=== PATIENT | female | born 1975 | race Caucasian/White ===

== ENCOUNTER 2017-03-18 09:09 | Emergency (ER) | payer OTHER ==
[~2017-03-18] VITALS: Ht 160 cm; Wt 90.0 kg
[~2017-03-18 09:09] MED LIST: MYLAN
[2017-03-18] MEDS ORDERED: SODIUM CHLORIDE 0.9% 1,000 ML IV ONE (10:21)
[2017-03-18] MEDS ORDERED: ONDANSETRON HCL 4MG/2ML VIAL IV ONE (10:30)
[2017-03-18] MEDS ORDERED: FAMOTIDINE 20MG/2ML VIAL IV ONE (10:45)
[2017-03-18] MEDS ORDERED: KETOROLAC 30MG/ML VIAL IV ONE (10:45)
[2017-03-18] MEDS ORDERED: EPINEPHRINE 1:1000 1 MG/ML AMP IM ONE (10:45)
[2017-03-18] MEDS ORDERED: PIPERACILLIN/TAZ 3.375G PREMIX 50 ML IV ONE (10:45)
[2017-03-18] MEDS ORDERED: LORAZEPAM 2MG/ML CPJ IV ONE (10:45)
[2017-03-18] MEDS ORDERED: DEXAMETHASONE 10MG/ML 1ML VIAL IV ONE (10:45)
[2017-03-18] MEDS ORDERED: DIPHENHYDRAMINE 50MG/ML VIAL IV ONE (10:45)
[2017-03-18] MEDS: SODIUM CHLORIDE 0.9% 1,000 ML IV SCH ×2 (10:53→11:02)
[2017-03-18] MEDS: ALBUTEROL (0.083%) 2.5MG/3ML NEB HHN SCH ×3 (10:55→12:02)
[2017-03-18 11:35] LABS: BASOPHILS % 0.6 % (0.0-2.0); HEMATOCRIT. 41.5 % (36.0-48.0); HEMOGLOBIN. 13.6 g/dL (12.0-16.0); LYMPHOCYTES % 37.9 % (20.0-50.0); MEAN CORPUSCULAR HEMOGLOBIN 28.7 pg (28.0-32.0); MEAN CORPUSCULAR HGB CONC 32.9 g/dL (31.0-37.0); MEAN CORPUSCULAR VOLUME 87.2 fL (81.0-99.0); MEAN PLATELET VOLUME 8.4 fl (7.4-10.4); MONOCYTES % 8.8 % (2.0-8.0); NEUTROPHILS % 50.7 % (40.0-76.0); PLATELET 364 x1000/uL (130-400); RED BLOOD CELL COUNT 4.76 mill/uL (4.2-5.4); RED CELL DISTRIBUTION WIDTH 13.7 % (11.6-14.6)
[2017-03-18 11:45] LABS: CHLORIDE 105 mEq/L (98-107); INDEX HEMOLYSI 1 (1-3); INDEX ICTERIC 1 (1-4); INDEX LIPEMIC 1 (1-3)
[2017-03-18 11:51] LABS: ANION GAP 14; CALCIUM 8.8 mg/dL (8.5-10.1); CARBON DIOXIDE 24 mEq/L (21-32); UREA NITROGEN BLOOD 12 mg/dL (7-21); eGFR > 60 mL/min (>60)
[2017-03-18 12:06] LABS: HCG SCREEN NEGATIVE
[2017-03-18 12:07] LABS: LACTIC ACID 3.9 mmol/L (0.4-2.0)
[2017-03-18] MEDS ORDERED: KCL 20MEQ/100ML PREMIX 100 ML IV ONE (12:15)
[2017-03-18] MEDS ORDERED: ACETAMINOPHEN 325MG TABLET PO ONE (13:45)
[2017-03-18] MEDS ORDERED: ALBUTEROL (0.083%) 2.5MG/3ML NEB HHN ONE (14:45)
[2017-03-18 16:54] VITALS: BP 124/66
== END 2017-03-18 16:56 | disposition home or self-care (01) ==
LOC: ER 10:18
DX: J03.90 Acute tonsillitis, unspecified (principal); J02.9 Acute pharyngitis, unspecified
CPT/HCPCS: 36415; 70450; 70490; 71010; 80048; 83605; 84703; 85025; 87040; 87086; 94640; 96361; 96365; 96366; 96372; 96375; 99285; J0171; J1100; J1200; J1885; J2405; J2543; J3480; J3490; J7030; J7040; J7611

== ENCOUNTER 2018-03-12 08:35 | Emergency (ER) | payer OTHER ==
[~2018-03-12] VITALS: Ht 144.8 cm; Wt 105.0 kg
[2018-03-12] MEDS ORDERED: HYDROCODONE/ACETAMINOPHEN 5/325MG TABLET PO ONE (10:30)
[2018-03-12] MEDS ORDERED: ONDANSETRON 4MG ODT PO ONE (10:30)
[2018-03-12 10:50] VITALS: BP 126/50
== END 2018-03-12 12:11 | disposition home or self-care (01) ==
LOC: ER 10:14
DX: L02.212 Cutaneous abscess of back [any part, except buttock and flank] (principal); Z98.890 Other specified postprocedural states
CPT/HCPCS: 72100; 81025; 99284; Q0162

== ENCOUNTER 2019-07-13 16:56 | Emergency (ER) | payer OTHER ==
[~2019-07-13] VITALS: Ht 160 cm; Wt 115.0 kg
[2019-07-14 00:16] LABS: BASOPHILS % 0.8 % (0.0-2.0); EOSINOPHILS % 1.6 % (0.0-5.0); HEMATOCRIT. 40.3 % (36.0-48.0); HEMOGLOBIN. 13.7 g/dL (12.0-16.0); LYMPHOCYTES % 33.9 % (20.0-50.0); MEAN CORPUSCULAR HEMOGLOBIN 30.2 pg (28.0-32.0); MEAN CORPUSCULAR VOLUME 89.1 fL (81.0-99.0); MEAN PLATELET VOLUME 7.7 fl (7.4-10.4); MONOCYTES % 9.1 % (2.0-8.0); NEUTROPHILS % 54.6 % (40.0-76.0); PLATELET 257 x1000/uL (130-400); RED BLOOD CELL COUNT 4.52 mill/uL (4.2-5.4); RED CELL DISTRIBUTION WIDTH 14.4 % (11.6-14.6)
[2019-07-14 00:21] LABS: CHLORIDE 105 mEq/L (98-107)
[2019-07-14 00:44] LABS: HCG SCREEN NEGATIVE
[2019-07-14] MEDS ORDERED: ACETAMINOPHEN 325MG TABLET PO ONE (02:15)
[2019-07-14 03:11] VITALS: BP 121/69
== END 2019-07-14 03:12 | disposition home or self-care (01) ==
LOC: ER 16:56
DX: R07.89 Other chest pain (principal); R06.02 Shortness of breath; F32.9 Major depressive disorder, single episode, unspecified; I10 Essential (primary) hypertension
CPT/HCPCS: 36415; 71045; 81025; 83880; 84484; 84703; 85379; 93005; 99283; 99284

== ENCOUNTER 2020-10-13 12:01 | Emergency (ER) | payer OTHER ==
[~2020-10-13] VITALS: Ht 144.8 cm; Wt 113.0 kg
[2020-10-13] MEDS ORDERED: METF500T PO (12:10)
[2020-10-13] MEDS ORDERED: HYDR12.54 PO (12:10)
[2020-10-13] MEDS ORDERED: ATOR10TA69 PO (12:10)
[2020-10-13] MEDS ORDERED: DIPH25CA83 PO (12:10)
[2020-10-13] MEDS ORDERED: [UNRECOGNIZED DRUG - OTHER] (12:10)
[2020-10-13] MEDS ORDERED: METF-815 PO (12:10)
[2020-10-13] MEDS ORDERED: DIPHENHYDRAMINE 25MG CAPSULE PO ONE (13:00)
[2020-10-13] MEDS ORDERED: FAMOTIDINE 20MG TABLET PO ONE (13:00)
[2020-10-13] MEDS ORDERED: PREDNISONE 20MG TABLET PO ONE (13:00)
[2020-10-13 13:47] VITALS: BP 140/80
== END 2020-10-13 13:47 | disposition home or self-care (01) ==
LOC: ER 12:01
DX: T78.2XXA Anaphylactic shock, unspecified, initial encounter (principal); I10 Essential (primary) hypertension; E11.9 Type 2 diabetes mellitus without complications; Z98.890 Other specified postprocedural states
CPT/HCPCS: 99284; J7512; Q0163

== ENCOUNTER 2020-10-23 23:23 | Emergency (ER) | payer OTHER ==
[~2020-10-23] VITALS: Ht 144.8 cm; Wt 116.0 kg
[~2020-10-23 23:23] MED LIST changes: +ATOR10TA69 PO; +DIPH25CA83 PO; +HYDR12.54 PO; +METF-815 PO; +METF500T PO; +[UNRECOGNIZED DRUG - OTHER]
[2020-10-24] MEDS ORDERED: METHYLPREDNISOLONE SOD SUCC 125 MG/2 ML VIAL IM STA (00:19)
[2020-10-24 01:33] LABS: BASOPHILS % 0.6 % (0.0-2.0); EOSINOPHILS % 1.1 % (0.0-5.0); HEMATOCRIT. 40.1 % (36.0-48.0); HEMOGLOBIN. 13.7 g/dL (12.0-16.0); MEAN CORPUSCULAR HEMOGLOBIN 29.3 pg (28.0-32.0); MEAN CORPUSCULAR VOLUME 86.1 fL (81.0-99.0); MEAN PLATELET VOLUME 8.2 fl (7.4-10.4); MONOCYTES % 5.1 % (2.0-8.0); NEUTROPHILS % 79.2 % (40.0-76.0); PLATELET 219 x1000/uL (130-400); RED BLOOD CELL COUNT 4.66 mill/uL (4.2-5.4); RED CELL DISTRIBUTION WIDTH 14.3 % (11.6-14.6)
[2020-10-24 01:35] LABS: CHLORIDE 100 mEq/L (98-107)
[2020-10-24 03:30] VITALS: BP 115/66
== END 2020-10-24 04:15 | disposition home or self-care (01) ==
LOC: ER 23:23
DX: T78.40XA Allergy, unspecified, initial encounter (principal); J45.909 Unspecified asthma, uncomplicated; E11.9 Type 2 diabetes mellitus without complications; E78.00 Pure hypercholesterolemia, unspecified; Z79.899 Other long term (current) drug therapy; Z98.890 Other specified postprocedural states; X58.XXXA Exposure to other specified factors, initial encounter
CPT/HCPCS: 36415; 71045; 80053; 85025; 93005; 96372; 99285; J2930

== ENCOUNTER 2021-01-30 06:28 | Emergency (ER) | payer OTHER ==
[~2021-01-30] VITALS: Ht 160 cm; Wt 100.0 kg
[~2021-01-30 06:28] MED LIST changes: -METF-815 PO; +METF-873 PO
[2021-01-30] MEDS ORDERED: SODIUM CHLORIDE 0.9% 1,000 ML IV ONE (06:45)
[2021-01-30] MEDS ORDERED: LORAZEPAM 2MG/ML CPJ IV ONE (07:15)
[2021-01-30 07:51] LABS: BASOPHILS % 0.4 % (0.0-2.0); EOSINOPHILS % 1.1 % (0.0-5.0); HEMATOCRIT. 40.9 % (36.0-48.0); HEMOGLOBIN. 13.6 g/dL (12.0-16.0); LYMPHOCYTES % 11.3 % (20.0-50.0); MEAN CORPUSCULAR HEMOGLOBIN 29.3 pg (28.0-32.0); MEAN PLATELET VOLUME 8.3 fl (7.4-10.4); MONOCYTES % 7.6 % (2.0-8.0); NEUTROPHILS % 79.6 % (40.0-76.0); PLATELET 328 x1000/uL (130-400); RED BLOOD CELL COUNT 4.65 mill/uL (4.2-5.4); RED CELL DISTRIBUTION WIDTH 14.4 % (11.6-14.6)
[2021-01-30 07:59] LABS: CHLORIDE 100 mEq/L (98-107)
[2021-01-30 08:14] LABS: PROTHROMBIN TIME 10.6 sec (9.6-11.0)
[2021-01-30 08:18] LABS: HCG SCREEN NEGATIVE
[2021-01-30] MEDS ORDERED: KETOROLAC 30MG/ML VIAL IV ONE (09:15)
[2021-01-30] MEDS ORDERED: LEVOFLOXACIN 500MG PREMIX 100 ML IV ONE (10:15)
[2021-01-30] MEDS ORDERED: MORPHINE SULFATE 4 MG/ML CPJ (NOT FOR IM USE) IV ONE (10:15)
[2021-01-30] MEDS ORDERED: ONDANSETRON HCL 4MG/2ML INJ IV ONE (10:15)
[2021-01-30 14:05] VITALS: BP 149/82
== END 2021-01-30 15:17 | disposition short-term general hospital (02) ==
LOC: ER 06:28
DX: J18.9 Pneumonia, unspecified organism (principal); F41.9 Anxiety disorder, unspecified; E11.9 Type 2 diabetes mellitus without complications; E78.00 Pure hypercholesterolemia, unspecified; I10 Essential (primary) hypertension; Z98.890 Other specified postprocedural states
CPT/HCPCS: 36415; 70450; 70486; 71045; 80053; 81025; 83605; 83690; 83880; 84484; 84703; 85025; 85610; 87040; 93005; 96361; 96365; 96366; 96375; 99285; J1885; J1956; J2060; J2270; J2405; J7030; Z7610

== ENCOUNTER 2022-03-16 09:39 | Emergency (ER) | payer OTHER ==
[~2022-03-16] VITALS: Ht 142.2 cm; Wt 129.0 kg
[2022-03-16 09:47] VITALS: BP 148/96
[2022-03-16 12:31] LABS: BASOPHILS % 0.7 % (0.0-2.0); EOSINOPHILS % 1.8 % (0.0-5.0); HEMATOCRIT. 40.9 % (36.0-48.0); HEMOGLOBIN. 13.4 g/dL (12.0-16.0); LYMPHOCYTES % 25.8 % (20.0-50.0); MEAN CORPUSCULAR HEMOGLOBIN 29.8 pg (28.0-32.0); MEAN CORPUSCULAR VOLUME 90.7 fL (81.0-99.0); MEAN PLATELET VOLUME 8.6 fl (7.4-10.4); MONOCYTES % 6.9 % (2.0-8.0); NEUTROPHILS % 64.8 % (40.0-76.0); PLATELET 275 x1000/uL (130-400); RED CELL DISTRIBUTION WIDTH 14.5 % (11.6-14.6)
[2022-03-16 12:46] LABS: HCG SCREEN NEGATIVE
[2022-03-16 13:00] LABS: CLARITY URINE CLEAR (CLEAR); COLOR URINE YELLOW (YELLOW); KETONES URINE NEGATIVE (NEGATIVE); LEUKOCYTE ESTERASE URINE NEGATIVE (NEGATIVE); NITRITE URINE NEGATIVE (NEGATIVE); OCCULT BLOOD URINE NEGATIVE (NEGATIVE); PROTEIN URINE NEGATIVE (NEGATIVE); SPECIFIC GRAVITY URINE 1.021 (1.005-1.030); UROBILINOGEN URINE 0.2 E.U./dL (0.2-1.0)
[2022-03-16 14:01] LABS: CHLORIDE 106 mEq/L (98-107)
[2022-03-16 14:06] LABS: *AMPHETAMINES SCREEN URINE NEGATIVE (NEGATIVE); *BARBITURATES SCREEN URINE NEGATIVE (NEGATIVE); *BENZODIAZEPINES SCREEN URINE NEGATIVE (NEGATIVE); *COCAINE SCREEN URINE NEGATIVE (NEGATIVE); CANNABINOID URINE SCREEN NEGATIVE (NEGATIVE); METHADONE URINE SCREEN NEGATIVE (NEGATIVE); OPIATES URINE SCREEN NEGATIVE (NEGATIVE); PHENCYCLIDINE URINE SCREEN NEGATIVE (NEGATIVE)
== END 2022-03-16 14:51 | disposition home or self-care (01) ==
LOC: ER 10:05
DX: R60.0 Localized edema (principal); E11.9 Type 2 diabetes mellitus without complications; I10 Essential (primary) hypertension; F41.9 Anxiety disorder, unspecified; K21.9 Gastro-esophageal reflux disease without esophagitis; Z79.84 Long term (current) use of oral hypoglycemic drugs
CPT/HCPCS: 36415; 71045; 80053; 80305; 81003; 82962; 83880; 84703; 85025; 93005; 93970; 99285